=== PATIENT | male | born 1960 | race American Indian/Alaskan Native ===

== ENCOUNTER 2020-09-14 06:19 | Emergency (ER) | payer OTHER ==
[2020-09-14 07:26] LABS: Basophils % (Auto) 0.4 % (0.0-1.8); Eosinophils # (Auto) 0.1 K/mm3 (0.0-0.4); Eosinophils % (Auto) 0.6 % (0.0-4.3); Hematocrit 45.2 % (35.5-45.6); Hemoglobin 15.1 gm/dl (11.8-15.2); Lymphocytes # (Auto) 0.7 K/mm3 (1.2-5.4); Lymphocytes % (Auto) 7.7 % (13.4-35.0); Mean Corpuscular HGB Conc 34 % (32-34); Mean Corpuscular Volume 92 fl (84-94); Monocytes # (Auto) 0.6 K/mm3 (0.0-0.8); Monocytes % (Auto) 6.6 % (0.0-7.3); Platelet Count 179 K/mm3 (140-440); Red Blood Count 4.93 M/mm3 (3.65-5.03)
[2020-09-14 07:44] LABS: Alanine Aminotransferase 30 units/L (7-56); Albumin 4.3 g/dL (3.9-5); BUN/Creatinine Ratio 13; Blood Urea Nitrogen 13 mg/dL (9-20); Calcium 9.4 mg/dL (8.4-10.2); Hemolysis Index 6
[2020-09-14] MEDS ORDERED: PANTOPRAZOLE 40 MG INJ IV ONE (09:28)
[2020-09-14] MEDS ORDERED: HYOSCYAMINE SUBL 0.125 MG TAB SL ONE (09:28)
[2020-09-14] MEDS ORDERED: ALUM-MAG HYDROXIDE-SIMETHICONE 200-200-20MG/5ML ORAL LIQD 30 ML PO ONE (09:28)
--- NOTE | 2020-09-14 09:57 | Emergency Department Report ---
ED Abdominal Pain HPI - General Chief Complaint: Abdominal Pain Stated Complaint: STOMACH PAIN Time Seen by Provider: 09/14/20 09:10 Source: patient Mode of arrival: Ambulatory Limitations: No Limitations - History of Present Illness Initial Comments: Patient is a 60-year-old male presents emergency room with complaints of upper abdominal pain that began last night. Patient states that he was recently prescribed vitamin D. He states that he was only supposed to take it once a week. He states that he took it accidentally 3 times in the last 4 days and believes this is the cause of his symptoms. He denies ever having this pain in the past. He states he had a normal bowel movement today. He denies any nausea, vomiting, diarrhea, hematochezia, hematemesis, melena, urinary symptoms. He denies any past medical history. No allergies to medications. He denies any abdominal surgical history. He states he is a non-smoker, nondrinker, denies drug use. - Related Data Home Medications Medication Instructions Recorded Confirmed Last Taken Aspirin EC [Halfprin EC] 81 mg PO QDAY 06/04/14 06/04/14 06/03/14 Furosemide 20 mg PO QDAY 06/04/14 06/04/14 06/03/14 Previous Rx's Medication Instructions Recorded Last Taken Type Atorvastatin (Nf) [Lipitor (Nf)] 10 mg PO QHS #30 tab 06/04/14 Unknown Rx Famotidine [Pepcid] 40 mg PO QHS #14 tablet 09/14/20 Unknown Rx Mag Hydrox/Aluminum Hyd/Simeth 10 ml PO QID PRN #1 oral.susp 09/14/20 Unknown Rx [Maalox Advanced Suspension] Allergies Allergy/AdvReac Type Severity Reaction Status Date / Time No Known Allergies Allergy Verified 06/04/14 08:01 ED Review of Systems ROS: Stated complaint: STOMACH PAIN Other details as noted in HPI Comment: All other systems reviewed and negative ED Past Medical Hx - Past Medical History Hx Hypertension: No - Social History Smoking Status: Never Smoker Substance Use Type: None - Medications Home Medications: Home Medications Medication Instructions Recorded Confirmed Last Taken Type Aspirin EC [Halfprin EC] 81 mg PO QDAY 06/04/14 06/04/14 06/03/14 History Atorvastatin (Nf) [Lipitor (Nf)] 10 mg PO QHS #30 tab 08/01/14 Unknown Rx Furosemide 20 mg PO QDAY 06/04/14 06/04/14 06/03/14 History Famotidine [Pepcid] 40 mg PO QHS #14 tablet 09/14/20 Unknown Rx Mag Hydrox/Aluminum Hyd/Simeth 10 ml PO QID PRN #1 oral.susp 09/14/20 Unknown Rx [Maalox Advanced Suspension] ED Physical Exam - General Limitations: No Limitations General appearance: alert, in no apparent distress - Head Head exam: Present: atraumatic, normocephalic - Eye Eye exam: Present: normal appearance - ENT ENT exam: Present: mucous membranes moist - Respiratory Respiratory exam: Present: normal lung sounds bilaterally. Absent: respiratory distress, wheezes, rales, rhonchi, stridor, chest wall tenderness, accessory muscle use, decreased breath sounds, prolonged expiratory - Cardiovascular Cardiovascular Exam: Present: regular rate, normal rhythm, normal heart sounds. Absent: systolic murmur, diastolic murmur, rubs, gallop - GI/Abdominal GI/Abdominal exam: Present: soft, tenderness (mild epigastric), normal bowel sounds. Absent: distended, guarding, rebound, rigid - Neurological Exam Neurological exam: Present: alert, oriented X3 - Psychiatric Psychiatric exam: Present: normal affect, normal mood - Skin Skin exam: Present: warm, dry, intact ED Course Vital Signs 09/14/20 07:13 Temperature 98.7 F Pulse Rate 67 Respiratory 18 Rate Blood Pressure 130/71 O2 Sat by Pulse 100 Oximetry ED Medical Decision Making - Lab Data Result diagrams: 09/14/20 07:19 09/14/20 07:19 Lab Results 09/14/20 09/14/20 09/14/20 Range/Units 07:19 07:19 07:19 WBC 9.5 (4.5-11.0) K/mm3 RBC 4.93 (3.65-5.03) M/mm3 Hgb 15.1 (11.8-15.2) gm/dl Hct 45.2 (35.5-45.6) % MCV 92 (84-94) fl MCH 31 (28-32) pg MCHC 34 (32-34) % RDW 13.0 L (13.2-15.2) % Plt Count 179 (140-440) K/mm3 Lymph % (Auto) 7.7 L (13.4-35.0) % [place] % (Auto) 6.6 (0.0-7.3) % Eos % (Auto) 0.6 (0.0-4.3) % Baso % (Auto) 0.4 (0.0-1.8) % Lymph # (Auto) 0.7 L (1.2-5.4) K/mm3 [place] # (Auto) 0.6 (0.0-0.8) K/mm3 Eos # (Auto) 0.1 (0.0-0.4) K/mm3 Baso # (Auto) 0.0 (0.0-0.1) K/mm3 Seg Neutrophils % 84.7 H (40.0-70.0) % Seg Neutrophils # 8.1 H (1.8-7.7) K/mm3 Sodium 137 (137-145) mmol/L Potassium 4.2 (3.6-5.0) mmol/L Chloride 101.3 (98-107) mmol/L Carbon Dioxide 30 (22-30) mmol/L Anion Gap 10 mmol/L BUN 13 (9-20) mg/dL Creatinine 1.0 (0.8-1.3) mg/dL Estimated GFR > 60 ml/min BUN/Creatinine Ratio 13 % Glucose 104 H (75-100) mg/dL Calcium 9.4 (8.4-10.2) mg/dL Total Bilirubin 0.50 (0.1-1.2) mg/dL AST 28 (5-40) units/L ALT 30 (7-56) units/L Alkaline Phosphatase 65 (35-129) units/L Troponin T < 0.010 (0.00-0.029) ng/mL Total Protein 7.9 (6.3-8.2) g/dL Albumin 4.3 (3.9-5) g/dL Albumin/Globulin Ratio 1.2 % Lipase 34 (13-60) units/L Urine Color (Yellow) Urine Turbidity (Clear) Urine pH (5.0-7.0) Ur Specific [place] (1.003-1.030) Urine Protein (Negative) mg/dL Urine Glucose (UA) (Negative) mg/dL Urine Ketones (Negative) mg/dL Urine Blood (Negative) Urine Nitrite (Negative) Urine Bilirubin (Negative) Urine Urobilinogen (<2.0) mg/dL Ur Leukocyte Esterase (Negative) Urine WBC (Auto) (0.0-6.0) /HPF Urine RBC (Auto) (0.0-6.0) /HPF 09/14/20 Range/Units 09:09 WBC (4.5-11.0) K/mm3 RBC (3.65-5.03) M/mm3 Hgb (11.8-15.2) gm/dl Hct (35.5-45.6) % MCV (84-94) fl MCH (28-32) pg MCHC (32-34) % RDW (13.2-15.2) % Plt Count (140-440) K/mm3 Lymph % (Auto) (13.4-35.0) % [place] % (Auto) (0.0-7.3) % Eos % (Auto) (0.0-4.3) % Baso % (Auto) (0.0-1.8) % Lymph # (Auto) (1.2-5.4) K/mm3 [place] # (Auto) (0.0-0.8) K/mm3 Eos # (Auto) (0.0-0.4) K/mm3 Baso # (Auto) (0.0-0.1) K/mm3 Seg Neutrophils % (40.0-70.0) % Seg Neutrophils # (1.8-7.7) K/mm3 Sodium (137-145) mmol/L Potassium (3.6-5.0) mmol/L Chloride (98-107) mmol/L Carbon Dioxide (22-30) mmol/L Anion Gap mmol/L BUN (9-20) mg/dL Creatinine (0.8-1.3) mg/dL Estimated GFR ml/min BUN/Creatinine Ratio % Glucose (75-100) mg/dL Calcium (8.4-10.2) mg/dL Total Bilirubin (0.1-1.2) mg/dL AST (5-40) units/L ALT (7-56) units/L Alkaline Phosphatase (35-129) units/L Troponin T (0.00-0.029) ng/mL Total Protein (6.3-8.2) g/dL Albumin (3.9-5) g/dL Albumin/Globulin Ratio % Lipase (13-60) units/L Urine Color Straw (Yellow) Urine Turbidity Clear (Clear) Urine pH 6.0 (5.0-7.0) Ur Specific [place] 1.005 (1.003-1.030) Urine Protein <15 mg/dl (Negative) mg/dL Urine Glucose (UA) Neg (Negative) mg/dL Urine Ketones Neg (Negative) mg/dL Urine Blood Sm (Negative) Urine Nitrite Neg (Negative) Urine Bilirubin Neg (Negative) Urine Urobilinogen < 2.0 (<2.0) mg/dL Ur Leukocyte Esterase Neg (Negative) Urine WBC (Auto) < 1.0 (0.0-6.0) /HPF Urine RBC (Auto) 1.0 (0.0-6.0) /HPF - EKG Data EKG shows normal: sinus rhythm, axis, intervals, QRS complexes, ST-T waves Rate: bradycardia - Radiology Data Radiology results: report reviewed CT ABDOMEN AND PELVIS WITH CONTRAST HISTORY: Upper abdominal pain COMPARISON: None TECHNIQUE: Routine abdominal and pelvic CT exam performed following intravenous contrast administration. The patient received 100 mm IV Omnipaque 300. All CT scans at this location are performed using CT dose reduction for [employer] by means of automated exposure control. FINDINGS: CT ABDOMEN: Lung Bases: No significant abnormality. Liver: No significant abnormality. Biliary: No significant abnormality. Spleen: No significant abnormality. Unenlarged. Pancreas: No significant abnormality. Adrenals: No significant abnormality. Kidneys: No significant abnormality. Lymphatics: No lymphadenopathy. Vasculature: No significant abnormality. Bowel/Peritoneum: No significant abnormality. No free air. No free fluid. Normal appendix. CT PELVIC: : Prostate is moderately enlarged, measuring 6.4 x 5.2 cm in the axial plane. Lymphatics: No lymphadenopathy. Osseous Structures: No aggressive appearing osseous lesions. Additional Findings: None IMPRESSION: 1. No acute findings. 2. Moderately enlarged prostate. Signer Name: Rodney Forman MD Signed: 09/14/2020 11:52 AM Workstation Name: [id number] Transcribed By: ZOHREH Dictated By: Rodney Forman MD Electronically Authenticated By: Rodney Forman MD Signed Date/Time: 09/14/20 1152 DD/ 1150 TD/TT: - Medical Decision Making Patient is a 60-year-old male presents emergency room with complaints of upper abdominal pain that began last night. Patient states that he was recently prescribed vitamin D. He states that he was only supposed to take it once a week. He states that he took it accidentally 3 times in the last 4 days and believes this is the cause of his symptoms. He denies ever having this pain in the past. He states he had a normal bowel movement today. He denies any nausea, vomiting, diarrhea, hematochezia, hematemesis, melena, urinary symptoms. He denies any past medical history. No allergies to medications. He denies any abdominal surgical history. He states he is a non-smoker, nondrinker, denies drug use. VSS. On exam mild epigastric tenderness palpation, no guarding, no rebound, no rigidity, normal bowel sounds. EKG was sinus bradycardia, otherwise normal. Labs are normal. Calcium is normal. UA is within normal limits. CT abdomen pelvis 1. No acute findings. 2. Moderately enlarged prostate. Patient given Protonix, Levsin, Maalox while in the emergency department and symptoms improved. Discussed all results with patient and answered questions. Patient be referred to urology and gastroenterology. Patient given prescription for Pepcid and Maalox. Advised patient Please take medication as prescribed. Increase your water intake. Follow-up with your primary care doctor. Follow-up with a GI doctor. Follow-up with a urologist. Return to emergency room for any new or worsening symptoms. Please take your vitamin D as prescribed by your doctor with the appropriate dose and frequency. - Differential Diagnosis PUD, GERD, pancreatitis, cholecystitis, hypercalcemia, gastritis, mass Critical care attestation.: If time is entered above; I have spent that time in minutes in the direct care of this critically ill patient, excluding procedure time. ED Disposition Clinical Impression: Enlarged prostate Abdominal pain Qualifiers: Abdominal location: upper abdomen, unspecified Qualified Code(s): R10.10 - Upper abdominal pain, unspecified Disposition: DC-01 TO HOME OR SELFCARE Is pt being admited?: No Does the pt Need Aspirin: No Condition: Stable Instructions: Abdominal Pain, Adult, [id number] Additional Instructions: Please take medication as prescribed. Increase your water intake. Follow-up with your primary care doctor. Follow-up with a GI doctor. Follow-up with a urologist. Return to emergency room for any new or worsening symptoms. Please take your vitamin D as prescribed by your doctor with the appropriate dose and frequency. Prescriptions: Famotidine [Pepcid] 40 mg PO QHS #14 tablet Mag Hydrox/Aluminum Hyd/Simeth [Maalox Advanced Suspension] 10 ml PO QID PRN #1 oral.susp PRN Reason: pain/bloating/gas Referrals: PRIMARY CARE, [Primary Care Provider] - 2-3 Days [facility] [Provider Group] - 2-3 Days EPI MARTINEZ MD [Staff Physician] - 2-3 Days Time of Disposition: 13:15 Print Language: MARSHALLESE
--- NOTE | 2020-09-14 11:57 | Cat Scan Report ---
CT ABDOMEN AND PELVIS WITH CONTRAST HISTORY: Upper abdominal pain COMPARISON: None TECHNIQUE: Routine abdominal and pelvic CT exam performed following intravenous contrast administrat ion. The patient received 100 mm IV Omnipaque 300. All CT scans at this location are performed using CT dose reduction for [place] by means of automated exposure control. FINDINGS: CT ABDOMEN: Lung Bases: No significant abnormality. Liver: No significant abnormality. Biliary: No significant abnormality. Spleen: No significant abnormality. Unenlarged. Pancreas: No significant abnormality. Adrenals: No significant abnormality. Kidneys: No significant abnormality. Lymphatics: No lymphadenopathy. Vasculature: No significant abnormality. Bowel/Peritoneum: No significant abnormality. No free air. No free fluid. Normal appendix. CT PELVIC: : Prostate is moderately enlarged, measuring 6.4 x 5.2 cm in the axial plane. Lymphatics: No lymphadenopathy. Osseous Structures: No aggressive appearing osseous lesions. Additional Findings: None IMPRESSION: 1. No acute findings. 2. Moderately enlarged prostate. Signer Name: Rodney Forman MD Signed: 09/14/2020 11:52 AM Workstation Name: [id number]
[2020-09-14 13:01] LABS: Bilirubin,Urine NEG (Negative); Blood,Urine SM (Negative); Color,Urine Straw (Yellow); Protein,Urine <15 mg/dL mg/dL (Negative); Urobilinogen,Urine < 2.0 mg/dL (<2.0); WBC,Urine < 1.0 /HPF (0.0-6.0)
[2020-09-14 13:31] VITALS: BP 134/74
== END 2020-09-14 13:29 | disposition home or self-care (01) ==
LOC: ED 06:19
DX: N40.0 Benign prostatic hyperplasia without lower urinary tract symptoms (principal); R10.10 Upper abdominal pain, unspecified; Z79.899 Other long term (current) drug therapy
CPT/HCPCS: 36415; 74177; 80053; 81001; 83690; 84484; 85025; 93005; 96374; 99284; C9113; Q9967